=== PATIENT | male | born 1990 | race Caucasian/White ===

== ENCOUNTER 2019-01-19 14:34 | Observation (INO) | payer OTHER ==
[2019-01-19 17:22] LABS: ADD MAN DIFF? NO
[2019-01-19 17:31] LABS: BASOPHIL # 0.1 10^3/ul (0.0-0.1); BASOPHILS % 0.5 % (0.0-2.0); EOSINOPHILS # 0.3 10^3/ul (0.0-0.5); EOSINOPHILS % 3.1 % (0.0-7.0); HEMATOCRIT 45.8 % (42.0-52.0); LYMPHOCYTES # 1.8 10^3/ul (0.8-2.9); LYMPHOCYTES % 19.1 % (15.0-51.0); MEAN CORPUSCULAR HGB CONC 34.9 g/dl (32.0-37.0); MEAN CORPUSCULAR VOLUME 91.6 fl (82.0-101.0); MONOCYTE # 0.8 10^3/ul (0.3-0.9); MONOCYTES % 8.7 % (0.0-11.0); NEUTROPHIL # 6.5 10^3/ul (1.6-7.5); PLATELET COUNT 189 10^3/UL (140-415); RED CELL DISTRIBUTION WIDTH 13.3 % (11.5-14.5)
[2019-01-19 17:31] LABS: WHITE BLOOD COUNT 9.6 10^3/ul (4.8-10.8)
[2019-01-19] MEDS: PANTOPRAZOLE IV 80 MG in SOD CHLORIDE 0.9% 100 ML IVPB (17:45)
[2019-01-19 17:48] LABS: ALANINE AMINOTRANSFERASE 40 IU/L (13-69); ALBUMIN 4.8 g/dl (3.3-4.9); ALBUMIN/GLOBULIN RATIO 1.45; ALKALINE PHOSPHATASE 73 IU/L (42-121); ANION GAP 11 (5-13); ASPARTATE AMINO TRANSFERASE 44 IU/L (15-46); BLOOD UREA NITROGEN 12 mg/dl (7-20); CALCIUM 9.6 mg/dl (8.4-10.2); CARBON DIOXIDE 26 mmol/L (21-31); CHLORIDE 105 mmol/L (97-110); CREATININE 0.76 mg/dl (0.61-1.24); Estimated GFR > 60 mL/min (>60); GLUCOSE 131 mg/dl (70-220); LIPASE 39 U/L (23-300); POTASSIUM 3.5 mmol/L (3.5-5.1); SODIUM 142 mmol/L (135-144); TOTAL PROTEIN 8.1 g/dl (6.1-8.1)
[2019-01-19 17:49] LABS: INR 0.95; PROTIME 12.8 Sec (11.9-14.9)
[2019-01-19 17:50] LABS: PARTIAL THROMBOPLASTIN TIME 31.6 Sec (23.0-35.0)
[2019-01-19 17:59] LABS: TROPONIN-I < 0.012 ng/ml (0.000-0.120)
[2019-01-19] MEDS: PANTOPRAZOLE IV 80 MG in SOD CHLORIDE 0.9% 100 ML IV (18:05)
[2019-01-19] MEDS ORDERED: ONDANSETRON 4 MG INJ IV ×2 (19:00→22:00)
[2019-01-19] MEDS ORDERED: ACETAMINOPHEN 325 MG TAB PO (19:00)
[2019-01-19] MEDS ORDERED: morphine 2 MG INJ IV (22:00)
[2019-01-19] MEDS: SOD CHLORIDE 0.9% 1,000 ML IV (22:37)
[2019-01-19 22:51] LABS: HEMATOCRIT 44.4 % (42.0-52.0); HEMOGLOBIN 15.1 g/dl (14.0-18.0)
[2019-01-20] MEDS: PANTOPRAZOLE IV 80 MG in SOD CHLORIDE 0.9% 100 ML IV ×2 (03:00→13:04)
[2019-01-20 06:26] LABS: HEMATOCRIT 43.9 % (42.0-52.0)
[2019-01-20 06:49] LABS: ANION GAP 6 (5-13); BLOOD UREA NITROGEN 13 mg/dl (7-20); CALCIUM 8.9 mg/dl (8.4-10.2); CARBON DIOXIDE 27 mmol/L (21-31); CHLORIDE 109 mmol/L (97-110); CREATININE 0.71 mg/dl (0.61-1.24); Estimated GFR > 60 mL/min (>60); GLUCOSE 100 mg/dl (70-220); POTASSIUM 4.2 mmol/L (3.5-5.1); SODIUM 142 mmol/L (135-144)
[2019-01-20] MEDS: NICOTINE (21 MG/24 HR) PATCH TRANSDERM (08:41)
[2019-01-20] MEDS ORDERED: LIDOCAINE 2% (SDV) 5 ML INJ (12:02)
[2019-01-20] MEDS ORDERED: PROPOFOL 20 ML (12:02)
[2019-01-20] MEDS ORDERED: MIDAZOLAM 1 MG/ML 2 ML INJ (12:03)
[2019-01-20] MEDS ORDERED: FENTAnyl 50 MCG/ML VIAL (12:03)
[2019-01-20] MEDS ORDERED: ETOMIDATE 20 MG INJ (12:03)
[2019-01-20] MEDS ORDERED: LIDOCAINE 4% SOLUTION 50 ML BTL (12:04)
[2019-01-20] MEDS: SOD CHLORIDE 0.9% 1,000 ML IV ×2 (12:18→17:54)
[2019-01-20 12:35] LABS: OCCULT BLOOD STOOL NEGATIVE (NEGATIVE)
[2019-01-20 16:13] LABS: HEMATOCRIT 43.1 % (42.0-52.0); HEMOGLOBIN 14.7 g/dl (14.0-18.0)
[2019-01-20] MEDS: PANTOPRAZOLE 40 MG INJ IV (17:54)
[2019-01-20 22:52] LABS: HEMATOCRIT 42.6 % (42.0-52.0); HEMOGLOBIN 14.4 g/dl (14.0-18.0)
[2019-01-21] MEDS: PANTOPRAZOLE 40 MG INJ IV (05:15)
[2019-01-21] MEDS: MULTIVITAMINS 10 ML, THIAMINE 100 MG, FOLIC ACID 1 MG in SOD CHLORIDE 0.9% 1,000 ML IVPB (08:49)
[2019-01-21] MEDS: NICOTINE (21 MG/24 HR) PATCH TRANSDERM (08:50)
== END 2019-01-21 14:20 | disposition home or self-care (01) ==
LOC: 2NE 20:38 → FTE 14:34 → 2NE 18:47
PROVIDERS: Internal Medicine
DX: K22.10 Ulcer of esophagus without bleeding (principal); F17.200 Nicotine dependence, unspecified, uncomplicated; K20.8 Other esophagitis; Z23 Encounter for immunization
CPT/HCPCS: 36415; 80048; 80053; 82270; 83690; 84484; 85014; 85018; 85025; 85610; 85730; 86850; 86900; 86901; 88305; 88312; 90686; 93005; 96365; 96376; 99217; 99285-25; G0378